=== PATIENT | female | born 2000 | race Two or more races ===

== ENCOUNTER 2021-12-26 09:06 | Emergency (ER) | payer SELFPAY ==
[~2021-12-26] VITALS: Ht 162.6 cm; Wt 54.4 kg
[2021-12-26] MEDS: ONDANSETRON HCL 4 MG/2 ML VIAL IV ONE (09:55)
[2021-12-26] MEDS: SODIUM CHLORIDE 0.9% 1,000 ML IV ONE (09:55)
[2021-12-26 09:57] LABS: Basophils # (auto) 0 10 ^3/uL (0-0.2); Basophils % (auto) 0.4 % (0.0-2.0); Eosinophils # (auto) 0.1 10 ^3/uL (0-0.8); Hematocrit 43.2 % (36.0-46.0); Hemoglobin 14.3 g/dL (12.2-16.2); Lymphocytes % (auto) 31.9 % (10.0-50.0); Mean Corpuscular Hemoglobin 27.6 pg (28.0-32.0); Mean Corpuscular Hgb Conc. 33.2 g/dL (32.0-36.0); Mean Corpuscular Volume 83.3 fL (80.0-100.0); Monocytes # (auto) 0.5 10 ^3/uL (0-1.3); Monocytes % (auto) 8.5 % (0.0-12.0); Neutrophils # (auto) 3.6 10 ^3/uL (1.6-8.6); Neutrophils % (auto) 57.2 % (37.0-80.0); Nucleated Red Blood Cells % 0.1 %; Red Blood Cells 5.18 10^6/uL (4.0-5.20); White Blood Cell 6.2 10^3/uL (4.4-10.8)
[2021-12-26 10:13] LABS: Albumin 3.2 g/dL (3.4-5.0); Calcium 8.5 mg/dL (8.5-10.1)
[2021-12-26 10:16] LABS: BUN/Creatinine Ratio 15.6; Bilirubin, Total 0.7 mg/dL (0.2-1.0); Total Protein 7.4 g/dL (6.4-8.2)
[2021-12-26 10:17] LABS: Urine Bacteria FEW /hpf (None Seen); Urine Blood Negative /uL (Negative); Urine Specific Gravity 1.007 (1.001-1.035); Urine WBC 35 /hpf (0 - 5)
[2021-12-26] MEDS ORDERED: NITR-87 PO (11:27)
[2021-12-26] MEDS ORDERED: ONDA-144 PO (11:27)
[2021-12-26] MEDS ORDERED: METH4PAK PO (11:27)
[2021-12-26 12:07] VITALS: BP 118/72
== END 2021-12-26 12:38 | disposition home or self-care (01) ==
LOC: ER 09:06
DX: U07.1 COVID-19 (principal); N39.0 Urinary tract infection, site not specified; R11.2 Nausea with vomiting, unspecified; F12.10 Cannabis abuse, uncomplicated; R19.7 Diarrhea, unspecified
CPT/HCPCS: 36415; 71046; 80053; 81001; 81025; 85025; 87426; 93005; 96361; 96374; 99285; J2405; J7030